=== PATIENT | male | born 2000 | race Caucasian/White ===

== ENCOUNTER 2020-05-17 22:38 | Emergency (ER) | payer OTHER ==
[2020-05-18 00:46] LABS: HEMOGLOBIN 16.1 gm/dl (14.0-17.5); RED BLOOD COUNT 5.45 M/UL (4.20-5.50); WHITE BLOOD COUNT 12.9 K/UL (4.5-11.0)
[2020-05-18 03:11] LABS: BUN/CREATININE RATIO 10 (0-10)
[2020-05-18] MEDS ORDERED: ZOFRAN ODT 4 MG4 MG PO (03:19)
== END 2020-05-18 03:30 | disposition home or self-care (01) ==
LOC: ER1 22:38
PROVIDERS: Physician Assistant
DX: F10.129 Alcohol abuse with intoxication, unspecified (principal); Y90.6 Blood alcohol level of 120-199 mg/100 ml; R10.9 Unspecified abdominal pain; R11.2 Nausea with vomiting, unspecified
CPT/HCPCS: 80053; 81001; 82150; 83690; 85025; 96374; 96375; 99284; C9113; G0480; J2405; Q9967

== ENCOUNTER 2021-11-09 07:23 | Emergency (ER) | payer BC, OTHER ==
[~2021-11-09 07:23] MED LIST: ZOFRAN ODT 4 MG4 MG PO
[2021-11-09 08:05] LABS: HEMOGLOBIN 16.9 gm/dl (14.0-17.5); RED BLOOD COUNT 5.75 M/UL (4.20-5.50); WHITE BLOOD COUNT 6.2 K/UL (4.5-11.0)
[2021-11-09 08:38] LABS: BUN/CREATININE RATIO 11 (0-10)
== END 2021-11-09 12:20 | disposition home or self-care (01) ==
LOC: ER1 07:23
PROVIDERS: Physician Assistant
DX: R07.2 Precordial pain (principal); F17.210 Nicotine dependence, cigarettes, uncomplicated
CPT/HCPCS: 71045; 80053; 82550; 82553; 84484; 85025; 93005; 99285

== ENCOUNTER 2021-11-26 17:42 | Emergency (ER) | payer BC, OTHER | END 2021-11-26 19:11 | disposition left against medical advice (07) | LOC: ER1 17:42 | DX: Z53.21 Procedure and treatment not carried out due to patient leaving prior to being seen by health care provider (principal) ==